=== PATIENT | male | born 2000 | race African-American/Black ===

== ENCOUNTER 2019-09-04 02:41 | Emergency (ER) | payer OTHER ==
[~2019-09-04] VITALS: Ht 185.4 cm; Wt 70.8 kg
[2019-09-04 03:22] LABS: ABSOLUTE NEUTROPHILS 3.1 thou/uL (1.4-8.2); BASOPHILS 0.7 % (0.0-2.0); EOSINOPHILS 2.3 % (0.0-3.0); HEMATOCRIT 41.8 % (42.0-52.0); HEMOGLOBIN 14.1 gm/dL (14.0-18.0); LYMPHOCYTES 26.6 % (24.0-44.0); MCH 30.6 pg (26.0-34.0); MCHC 33.7 g/dL (28.0-37.0); MONOCYTES 10.7 % (1.0-8.0); PLATELET COUNT 236 thou/uL (150-400); POLYS 59.7 % (36.0-66.0); RBC 4.59 mil/uL (4.50-6.00); RDW 13.6 % (10.5-14.5); WBC 5.3 thou/uL (4.0-11.0)
[2019-09-04 03:30] LABS: CALCIUM 9.3 mg/dL (8.5-10.1); POTASSIUM 3.4 mmol/L (3.5-5.1)
[2019-09-04 03:37] LABS: ALBUMIN 4.4 g/dL (3.4-5.0); TOTAL BILIRUBIN 0.6 mg/dL (<0.1-1.0); TOTAL PROTEIN 7.9 g/dL (6.4-8.2)
[2019-09-04 04:15] VITALS: BP 104/68
== END 2019-09-04 04:15 | disposition home or self-care (01) ==
LOC: ER 02:41
PROVIDERS: Emergency Medicine
DX: R10.84 Generalized abdominal pain (principal)

== ENCOUNTER 2020-05-22 12:58 | Emergency (ER) | payer BC, OTHER ==
[~2020-05-22] VITALS: Ht 185.4 cm; Wt 85.7 kg
--- NOTE | 2020-05-22 13:29 | EKG ---
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
[2020-05-22 13:49] LABS: ANION GAP 13 mmol/L (7-16); BUN 12 mg/dL (7-18); CALCIUM 9.7 mg/dL (8.5-10.1); CHLORIDE 101 mmol/L (98-107); CO2 27 mmol/L (21-32); CREATININE 1.1 mg/dL (0.7-1.3); GLUCOSE 91 mg/dL (74-106); POTASSIUM 3.5 mmol/L (3.5-5.1); SODIUM 141 mmol/L (136-145)
[2020-05-22 13:57] LABS: TROPONIN-I <0.06 ng/mL (<0.06)
[2020-05-22] MEDS ORDERED: IBUPROFEN 600600 M1 PO (14:36)
[2020-05-22 14:46] VITALS: BP 120/79
--- NOTE | 2020-05-23 07:21 | EKG ---
[facility] [place] [address] ELECTROCARDIOGRAM REPORT Name: RODNEY SEARS Room #: [facility]#: [id number] Admission: 05/22/20 Attend Phys: Discharge: 05/22/20 Date of : [birth year] Report #: [id number] THIS REPORT FOR: cc: MERARY Ferrer family physician/PCP MERARY Ferrer family physician/PCP Ronal Wise MD [facility] THIS REPORT FOR: //name// [facility] ED Test Date: 2020-05-22 Test Time: 13:19:04 Pat Name: RODNEY SEARS Department: Room: Gender: Assorter: : 2000 Requested By: Madhu Millan Order Number: [id number] MD: Ronal Wise Measurements Intervals [place] Rate: 108 P: 77 OR: 130 QRS: 84 QRSD: 98 T: -38 QT: 309 QTc: 414 Interpretive Statements Sinus tachycardia Nonspecific T abnormalities, inferior leads Compared to ECG 05/22/2020 13:03:45 Sinus rhythm no longer present T-wave abnormality still present Electronically Signed On 05-23-2020 7:20:50 CDT by Ronal Wise [email or web address] <ELECTRONICALLY SIGNED> By: Ronal Wise MD, FACC 05/23/20 0720 1319 1319 Ronal Wise MD, [facility] /EPI
== END 2020-05-22 14:47 | disposition home or self-care (01) ==
LOC: ER 12:58
PROVIDERS: Nurse Practitioner
DX: R07.89 Other chest pain (principal)

== ENCOUNTER → 2021-01-29 | Outpatient (CLI) | payer BC, OTHER ==
[~2021-01-29] MED LIST: IBUPROFEN 600600 M1 PO
== END ==
LOC: CAT 11:19
PROVIDERS: ATTEND Family Medicine
DX: R10.31 Right lower quadrant pain (principal)